=== PATIENT | female | born 1995 | race Caucasian/White ===

== ENCOUNTER 2020-07-19 07:27 | Inpatient (IN) ==
--- NOTE | 2020-07-18 09:58 | Communication Note ---
Pt tested Covid positive on 06/17/20 through her work- testing was done randomly at work. Pt was asymptomatic. Pt was retested for Covid 07/15/20= results were ne gative. OB floor has been informed and is aware- pt will be treated as negative Covid patient since positive test was >30 days ago. Anesthesiologist for day of procedure, Dr. Marrero, was also informed.
--- NOTE | 2020-07-19 07:37 | History & Physical Report ---
Date of Service July 19, 2020 Assessment & Plan Admission and Anticipated Discharge Date Admission Date: July 19, 2020 History of Present Illness Primary Care Provider: NO PCP Allergies Allergy/AdvReac Type Severity Reaction Status Date / Time No Known Allergies Allergy Verified 07/15/20 09:47 Home Medications Medication Instructions Recorded Confirmed Type aspirin [Aspir-81] 81 mg PO QDL 07/15/20 07/15/20 History famotidine [Pepcid] 40 mg PO PM 07/15/20 07/15/20 History labetalol 300 mg PO TID 07/15/20 07/15/20 History Past Med/Surg History Medical History (Updated 07/15/20 @ 09:51 by Dayanna Mccormick RN) GERD (gastroesophageal reflux disease) Hx of pre-eclampsia in prior , currently ASA for this Hypertension induced Surgical History (Updated 07/15/20 @ 09:51 by Dayanna Mccormick RN) History of tonsillectomy Hx of section [place] teeth extracted Family History (Updated 07/15/20 @ 09:52 by Dayanna Mccormick RN) Aunt Throat cancer Father No problems noted. Mother Diabetes Social History Smoking Status: Former smoker Smoking End Date: over 10 yrs ago; Second Hand Exposure: Yes ( smokes); Do You Dip or Chew Tobacco: No; Tobacco Cessation Education Requested by Patient: No Hx Alcohol Use: No Hx Substance Use: No Preferred Language: Tajik Communication Ability: Effective Shaft Sinker Required: No Beliefs That Will Affect Care: None Current Living Situation: Spouse Other Information That Helps Us Care for You: No Feels Safe at Home: Yes Safety Concerns: Feels Safe At This Time Assistive Devices: Glasses Review of Systems Review of Systems: All systems reviewed & are unremarkable except as noted in HPI & below Physical Exam Constitutional: WD/WN, vitals as above comfortable Eyes: PERRL, conjunctivae normal, anicteric sclerae ENMT: external ear and nose normal, oropharynx normal Neck: trachea midline, no thyromegaly Thyroid: normal thyroid Respiratory: normal respiratory effort, lungs clear to auscultation Auscultation: lungs clear to auscultation bilaterally Cardiovascular: RRR, no murmur, no edema Rate/Rhythm: regular rate and regular rhythm Chest (Breasts): normal inspection/palpation of breasts Gastrointestinal (Abdomen): normal bowel sounds, soft, nontender, no hepatosplenomegaly Inspection/Auscultation: abdomen normal to inspection Skin: no rashes, warm and dry Neurologic: patellar DTR's 2+ bilat, sensation intact Psychiatric: A+Ox3, euthymic affect Genitourinary: OB Exam Abdomen: + vertex OB Exam Monitor Tracing: + external FHT monitor used, + external uterine monitor used, + category I and + normal FHT variability
[2020-07-19] MEDS ORDERED: LACTATED RINGER'S 1,000 ML IV SCH ×2 (07:45→22:00)
[2020-07-19 08:23] LABS: Basophils # (auto) 0.01 K/uL (0-0.2); Basophils % (auto) 0.1 %; Eosinophils # (auto) 0.07 K/uL (0-0.5); Eosinophils % (auto) 0.6 %; Hematocrit (blood only) 32.8 % (37-47); Hemoglobin 10.6 g/dL (12.0-16.0); Immature Granulocytes # (auto) 0.04 K/uL (0.00-0.02); Immature Granulocytes % (auto) 0.3 %; Lymphocytes # (auto) 1.58 K/uL (1.2-3.4); Lymphocytes % (auto) 13.3 %; Mean Corpuscular Hemoglobin 26.2 pg (25-34); Mean Corpuscular Hgb Conc 32.3 g/dL (32-36); Mean Corpuscular Volume 81.2 fL (80-100); Mean Platelet Volume 13.2 fL (7.4-10.4); Monocytes # (auto) 0.61 K/uL (0.11-0.59); Monocytes % (auto) 5.1 %; Neutrophils # (auto) 9.56 K/uL (1.4-6.5); Neutrophils % (auto) 80.6 %; Platelet Count 274 K/uL (130-400); RDW Coefficient of Variation 14.6 % (11.5-14.5); RDW Standard Deviation 42.7 fL (36.4-46.3); Red Blood Count 4.04 M/uL (4.2-5.4); White Blood Count 11.87 K/uL (4.8-10.8)
[2020-07-19] MEDS ORDERED: fentaNYL citrate 100 MCG/2 ML VIAL ONE (08:59)
[2020-07-19] MEDS ORDERED: MoRPHine SULFATE PF 1 MG/ML 10 ML AMP/VIAL ONE (08:59)
[2020-07-19] MEDS ORDERED: OXYTOCIN 10 UNITS/ML VIAL ONE (09:02)
[2020-07-19] MEDS ORDERED: CITRIC ACID/SODIUM CITRATE 15 ML UDC PO STA ×2 (09:21→09:26)
--- NOTE | 2020-07-19 09:22 | Anesthesiology Consultation ---
Date of Service July 19, 2020 Assessment & Plan (1) Encounter for pre-operative examination: Chart Review Chart Review: Acceptable Risk for Surgery Consults Requested none ASA ASA3 Proposed Anesthesia Anesthesia Type: Spinal Risk / Benefits Reviewed With: PT / POA / Parent / Guardian, Accepts Plan and Informed Consent Obtained History Surgery Operation Date: 07/19/20 08:50 Proposed Procedures p Section, - Wilfred Okeefe MD s Bilateral Tubal Ligation - Wilfred Okeefe MD Height/Weight Height: 5 ft 4 in Weight: 145.15 kg Allergies Allergy/AdvReac Type Severity Reaction Status Date / Time No Known Allergies Allergy Verified 07/19/20 08:38 Medications Home Medications Medication Instructions Recorded Confirmed Last Taken labetalol 300 mg PO TID 07/15/20 07/19/20 07/19/20 06:30 prenat.vits,francesca,ydj-[id number] 1 tab PO DAILY 07/19/20 07/19/20 07/19/20 06:30 [ Vitamin] NPO Date Last Intake of Fluids: 07/19/20 Time Last Intake of Fluids: 00:00 Date Last Intake of Solids: 07/19/20 Time Last Intake of Solids: 00:00 Past Medical History Medical History GERD (gastroesophageal reflux disease) Hx of pre-eclampsia in prior , currently ASA for this Hypertension induced Exercise / Class Metabolic Activity II 4-5 Yardwork/Stairs/Walk up hill Past Family History Family History Aunt Throat cancer Father No problems noted. Mother Diabetes Past Surgical History Surgical History History of tonsillectomy Hx of section [place] teeth extracted Past Anesthesia History No Hx of Anesthesia Complications and No Family Hx of Anesthesia Complications History of PONV No Hx of PONV and No Hx of Motion Sickness Social History Smoking Status: Former smoker Do You Dip or Chew Tobacco: No Smoking End Date: 2011 Hx Alcohol Use: No Hx Substance Use: No substance use type: does not use Physical Exam Vital Signs Last Vital Signs Temp 99.1 F 07/19/20 08:02 Pulse 95 H 07/19/20 07:45 Resp 20 07/19/20 08:02 BP 123/62 07/19/20 07:45 ENMT Mouth: no dentition abnormality Thyromental Distance: > or= 3.5 Finger Breadths Mallampati Class: III Neck normal visual inspection Respiratory normal respiratory effort Auscultation: lungs clear to auscultation bilaterally Cardiovascular Rate/Rhythm: regular rate and regular rhythm Testing Laboratory Results 07/19/20 07:37 Blood Type A Positive 07/19/20 07:32 Antibody Screen NEGATIVE 07/19/20 07:32
[2020-07-19] MEDS ORDERED: DC INTRASPINAL MORPHINE SCH (10:30)
[2020-07-19] MEDS ORDERED: NALOXONE HCL 0.4 MG/1 ML VIAL/CARP IV PRN (10:30)
[2020-07-19] MEDS ORDERED: KETOROLAC 30 MG/ML VIAL IV PRN (10:30)
[2020-07-19] MEDS ORDERED: MoRPHine SULFATE PF 1 MG/ML 10 ML AMP/VIAL INT SPINAL ONE (10:30)
[2020-07-19] MEDS ORDERED: MEPERIDINE HCL 25 MG/ML CARP/VIAL IV PRN (10:30)
[2020-07-19] MEDS ORDERED: NO NARCOTICS OR SEDATIVES SCH (10:30)
[2020-07-19] MEDS ORDERED: diphenhydrAMINE 50 MG/ML VIAL IV PRN ×2 (10:30→13:06)
[2020-07-19] MEDS ORDERED: ePHEDrine sulfate 50 MG/ML AMP IV PRN (10:30)
[2020-07-19] MEDS ORDERED: SODIUM CHLORIDE 0.9% 1000ML 1,000 ML IV SCH (10:30)
[2020-07-19] MEDS ORDERED: NALOXONE HCL 1 MG in SODIUM CHLORIDE 0.9% 1000ML 1,000 ML IV PRN (10:30)
[2020-07-19] MEDS ORDERED: LACTATED RINGER'S 500 ML IV PRN (10:30)
[2020-07-19] MEDS ORDERED: NALOXONE HCL 0.08 MG in SYRINGE 1.8 ML IV PRN (10:30)
[2020-07-19] MEDS ORDERED: ONDANSETRON INJ 2 MG/ML 2 ML VIAL ONE (10:31)
[2020-07-19] MEDS ORDERED: ePHEDrine sulfate 50 MG/ML SYR ONE (11:22)
[2020-07-19] MEDS ORDERED: PHENYLEPHRINE 100MCG/ML 5ML SYR ONE (11:22)
--- NOTE | 2020-07-19 12:10 | Post Operative Brief Note ---
Immediate Post Op Note v1 Date of Surgery July 19, 2020 Pre & Post Diagnosis Operation Date: 07/19/20 08:50 Pre-Op Diagnosis: Previous , Voluntary Sterilization Post-Op Diagnosis: Previous , Voluntary Sterilization; LOW TRANSVERSE SECTION AND BILATERAL TUBAL LIGATION WITH FILSHE CLIPS I identified the patient and participated in the time-out.: Yes Procedure Operation Date: 07/19/20 08:50 Actual Procedures p Section,delivery of live male at 1057 - Wilfred Okeefe MD s Bilateral Tubal Ligation - Wilfred Okeefe MD Surgeon Wilfred Okeefe MD Chief Ophthalmic Technician Dr. Sanz and ADI Ramos Estimated Blood Loss 800 Findings Consistent with Post-Op Diagnosis Drains Chavez Catheter (inserted after spinal with return of light yellow urine)
[2020-07-19] MEDS ORDERED: OXYTOCIN 20 UNITS in LACTATED RINGER'S 1,000 ML IV SCH (13:06)
[2020-07-19] MEDS ORDERED: SENNA 8.6 MG TAB PO PRN (13:06)
[2020-07-19] MEDS ORDERED: BENZOCAINE 20% AER SPR 82.5 GM CAN EXT PRN (13:06)
[2020-07-19] MEDS ORDERED: HYDROCORTISONE ACETATE 25 MG SUPP PR PRN (13:06)
[2020-07-19] MEDS ORDERED: MAGNESIUM HYDROXIDE SUSP 30 ML UDC PO PRN (13:06)
[2020-07-19] MEDS ORDERED: SUPERCREAM 0.870% 15 GM JAR EXT PRN (13:06)
[2020-07-19] MEDS ORDERED: DIPHTHERIA/TETANUS/PERTUSSIS 0.5 ML SYR/VIAL IM ONE (13:06)
--- NOTE | 2020-07-19 13:11 | Anesthesiology Progress Note ---
Date of Service July 19, 2020 Anesthesia Post Procedure Vital Signs Vital Signs: Temp Pulse Resp BP Pulse Ox 07/19/20 13:06 72 98 07/19/20 13:01 92 H 119/58 L 99 07/19/20 12:56 72 100 07/19/20 12:51 72 116/60 100 07/19/20 12:50 18 07/19/20 12:46 73 100 07/19/20 12:41 74 119/65 100 07/19/20 12:40 20 07/19/20 12:36 70 100 07/19/20 12:32 79 125/58 L 07/19/20 12:31 78 100 07/19/20 12:30 20 07/19/20 12:26 77 100 07/19/20 12:21 71 100/51 L 100 07/19/20 12:20 20 07/19/20 12:16 83 100 07/19/20 12:15 83 88 L 07/19/20 12:12 78 96/51 L 07/19/20 12:11 81 100 07/19/20 12:10 20 07/19/20 12:06 73 100 07/19/20 12:03 82 105/50 L 07/19/20 12:01 86 100 07/19/20 12:00 97.7 F 20 07/19/20 08:02 99.1 F 20 07/19/20 07:45 95 H 123/62 07/19/20 07:43 86 170/101 H Transfer of Care Handoff Completed per policy Notes Mental Status: alert / awake / arousable and participated in evaluation Nausea / Vomiting: adequately controlled Pain: adequately controlled Airway Patency, RR, SpO2: stable & adequate BP & HR: stable & adequate Hydration State: stable & adequate Neuraxial Anesthesia: was administered and sensory block is resolving Anesthetic Complications: no major complications apparent and Pt Satisfied with anesthetic care
[2020-07-19] MEDS: SIMETHICONE 80 MG CHEW PO SCH ×3 (13:36→21:12)
[2020-07-19] MEDS: metroNIDAZOLE 500 MG TAB PO SCH ×2 (14:39→21:12)
[2020-07-19] MEDS: cephALEXin 500 MG CAP PO SCH ×2 (14:39→21:12)
--- NOTE | 2020-07-19 16:17 | Obstetrical Progress Note ---
Date of Service July 19, 2020 Assessment & Plan Admission and Anticipated Discharge Date Admission Date: July 19, 2020 Physical Exam Genitourinary: Manual OB Exam: + cervical dilation 5 cm, + cervical effacement 80%, + station -1 and + amniotic fluid clear OB Exam Monitor Tracing: + external FHT monitor used, + external uterine monitor used, + category I and + normal FHT variability AROM of forebag with Amni-hook clear fluid Results & Data ([facility]) Vital Signs (Past 12 Hours) Vital Signs Temp Pulse Resp BP Pulse Ox 07/19/20 15:02 81 130/90 07/19/20 15:01 79 100 07/19/20 14:56 82 99 07/19/20 14:51 73 99 07/19/20 14:46 82 99 07/19/20 14:41 79 97 07/19/20 14:36 67 98 07/19/20 14:32 69 131/80 07/19/20 14:31 76 97 07/19/20 14:26 74 99 07/19/20 14:21 80 99 07/19/20 14:16 73 98 07/19/20 14:11 75 98 07/19/20 14:06 71 98 07/19/20 14:02 76 122/67 07/19/20 14:01 79 98 07/19/20 14:00 20 07/19/20 13:56 73 97 07/19/20 13:51 78 98 07/19/20 13:46 76 99 07/19/20 13:41 74 99 07/19/20 13:36 71 98 07/19/20 13:32 65 136/81 07/19/20 13:31 68 100 07/19/20 13:30 20 07/19/20 13:26 71 100 07/19/20 13:21 72 99 07/19/20 13:16 71 99 07/19/20 13:11 78 100 07/19/20 13:06 72 98 07/19/20 13:01 92 H 119/58 L 99 07/19/20 13:00 20 07/19/20 12:56 72 100 07/19/20 12:51 72 116/60 100 07/19/20 12:50 18 07/19/20 12:46 73 100 07/19/20 12:41 74 119/65 100 07/19/20 12:40 20 07/19/20 12:36 70 100 07/19/20 12:32 79 125/58 L 07/19/20 12:31 78 100 07/19/20 12:30 20 07/19/20 12:26 77 100 07/19/20 12:21 71 100/51 L 100 07/19/20 12:20 20 07/19/20 12:16 83 100 07/19/20 12:15 83 88 L 07/19/20 12:12 78 96/51 L 07/19/20 12:11 81 100 07/19/20 12:10 20 07/19/20 12:06 73 100 07/19/20 12:03 82 105/50 L 07/19/20 12:01 86 100 07/19/20 12:00 36.5 C 20 07/19/20 08:02 37.3 C 20 07/19/20 07:45 95 H 123/62 07/19/20 07:43 86 170/101 H
--- NOTE | 2020-07-19 19:16 | Operative Report (OR) ---
DATE OF OPERATION: 07/19/2020 PREOPERATIVE DIAGNOSES: Term elective repeat section and voluntary sterilization. POSTOPERATIVE DIAGNOSES: Term elective repeat section and voluntary sterilization. PROCEDURE: Repeat section, low segment transverse with bilateral tubal ligation with Filshie clips. SURGEON: Wilfred Okeefe MD. ASSISTANTS: ADI Ramos and Dr. Sanz. ANESTHESIA: Spinal. COMPLICATIONS: None. FINDINGS: Live male, Apgars 7, 8. weight is 8 pounds 6 ounces. ESTIMATED BLOOD LOSS: 800 mL. TOTAL URINE: 75 mL. FLUIDS: 1800 mL. CLINICAL HISTORY: The patient is a 25-year-old female, para 1-1-0-1, at 39 weeks and 2 days, admitted for an elective repeat section and voluntary sterilization procedure. Informed consent was given in the office. Risks, benefits and alternatives were explained. A timeout was called prior to the start of the procedure and antibiotics were given preop. DESCRIPTION OF PROCEDURE: Under satisfactory spinal anesthesia, the patient was prepped and draped in the usual sterile fashion. A low Pfannenstiel incision was made entering into the abdominal cavity and successive layers without difficulty. Upon entering into the abdominal cavity, there were some adhesions noted to the lower uterine segment. The incision was made a little higher up on the lower segment, widened with bandage scissors bilaterally. The amniotic sac was nicked and found to be clear. The infant was then delivered from the vertex presentation with the aid of fundal pressure. There was copious amounts of fluid the baby was floating, delivering a live male. The cord was doubly clamped and cut. Baby was handed to dye automation operator. Apgars 7 and 8, weight 8 pounds 6 ounces. Cord blood was obtained. Placenta was then delivered spontaneously and intact. Uterus was then exteriorized. Ring forceps were then placed on both angles in the inferior margin. Another ring was used to dilate the cervix. The uterus was then closed in a double layer closure with 0 Vicryl suture in a continuous interlocking fashion followed by second imbricating suture of 0 Vicryl suture. Several [id number] sutures were used for hemostasis. Tubes and ovaries bilaterally were found to be within normal limits. The Filshie clip applicator was then used to clip both tubes serially with 2 clips each. The uterus was then placed back into the normal anatomical position. The initial sponge, needle, and instrument counts were found to be correct. The contents of the pelvic and abdominal cavity were then irrigated to clear. No active bleeding was noted. The lower uterine segment was inspected. The incision was then coated with Jose powder. The fascia was then reapproximated from both ends using #1 Vicryl suture in a continuous interlocking fashion. Subcuticular layer was then closed with 3-0 plain suture. Subcuticular layer was then irrigated and bleeders were cauterized and the skin was then reapproximated with florence. Clear urine was noted from the Chavez. Estimated blood loss 800 mL. The final sponge, needle and instrument counts were found to be correct. The patient was then placed supine on the stretcher and taken to recovery room in stable condition. I attest to the content of the Intraoperative Record and any orders documented therein. Any exception s are noted below.
[2020-07-19] MEDS: DOCUSATE SODIUM 100 MG CAP PO SCH (21:12)
[2020-07-20] MEDS ORDERED: diphenhydrAMINE Capsule 25 MG CAP PO PRN (04:30)
[2020-07-20] MEDS ORDERED: PROMETHAZINE HCL 25 MG in SODIUM CHLORIDE 0.9% 50 ML IV PRN (04:30)
[2020-07-20] MEDS ORDERED: KETOROLAC 30 MG/ML VIAL IV PRN (04:30)
[2020-07-20] MEDS ORDERED: ONDANSETRON INJ 2 MG/ML 2 ML VIAL IV PRN (04:30)
[2020-07-20] MEDS: oxyCODONE/ACETAMINOPHEN 5mg/325mg TAB PO PRN ×5 (05:17→23:38)
[2020-07-20] MEDS: IBUPROFEN 600 MG TAB PO PRN ×5 (05:18→23:38)
[2020-07-20] MEDS: cephALEXin 500 MG CAP PO SCH ×3 (05:18→20:53)
[2020-07-20] MEDS: metroNIDAZOLE 500 MG TAB PO SCH ×3 (05:18→20:53)
[2020-07-20 07:15] LABS: Eosinophils # (auto) 0.06 K/uL (0-0.5); Eosinophils % (auto) 0.6 %; Hematocrit (blood only) 26.7 % (37-47); Hemoglobin 8.5 g/dL (12.0-16.0); Immature Granulocytes # (auto) 0.02 K/uL (0.00-0.02); Immature Granulocytes % (auto) 0.2 %; Lymphocytes # (auto) 1.14 K/uL (1.2-3.4); Lymphocytes % (auto) 11.8 %; Mean Corpuscular Hemoglobin 26.2 pg (25-34); Mean Corpuscular Hgb Conc 31.8 g/dL (32-36); Mean Corpuscular Volume 82.4 fL (80-100); Monocytes # (auto) 0.62 K/uL (0.11-0.59); Monocytes % (auto) 6.4 %; Neutrophils # (auto) 7.85 K/uL (1.4-6.5); Platelet Count 238 K/uL (130-400); RDW Coefficient of Variation 14.9 % (11.5-14.5); RDW Standard Deviation 44.7 fL (36.4-46.3); Red Blood Count 3.24 M/uL (4.2-5.4); White Blood Count 9.69 K/uL (4.8-10.8)
--- NOTE | 2020-07-20 07:59 | Obstetrical Progress Note ---
Date of Service July 20, 2020 Assessment & Plan Admission and Anticipated Discharge Date Admission Date: July 19, 2020 Physical Exam Physical Exam: abdomen soft and non tender incision clean vaishali dressing in place no calf tenderness bowel sounds present hypoactive vaginal bleeding scant hgb 8.5 Results & Data ([facility]) Vital Signs (Past 12 Hours) Vital Signs Temp Pulse Resp BP Pulse Ox 07/20/20 05:50 15 98 07/20/20 05:00 37.4 C 80 16 134/81 98 07/20/20 04:00 16 98 07/20/20 03:00 16 98 07/20/20 02:00 16 97 07/20/20 01:00 16 97 07/20/20 00:00 16 99 07/19/20 23:30 36.9 C 87 16 119/80 98 07/19/20 23:00 14 98 07/19/20 22:15 18 99 07/19/20 21:15 16 99 07/19/20 20:15 18 98
[2020-07-20] MEDS ORDERED: FERROUS SULFATE 325 MG TAB PO SCH (08:00)
[2020-07-20] MEDS: DOCUSATE SODIUM 100 MG CAP PO SCH ×2 (08:47→20:53)
[2020-07-20] MEDS: PRENATAL VITAMIN 1 TAB PO SCH (08:47)
[2020-07-20] MEDS: SIMETHICONE 80 MG CHEW PO SCH ×4 (08:47→20:52)
[2020-07-20] MEDS ORDERED: NON-FORMULARY MEDICATION (Prenat.Vits,Cal,Min-Iron-Folic Tablet) PO SCH (09:00)
[2020-07-20] MEDS ORDERED: bisacodyL 5 MG TABEC PO SCH (20:00)
[2020-07-21] MEDS: oxyCODONE/ACETAMINOPHEN 5mg/325mg TAB PO PRN ×3 (04:48→12:49)
[2020-07-21] MEDS: IBUPROFEN 600 MG TAB PO PRN ×3 (04:49→12:49)
[2020-07-21] MEDS: cephALEXin 500 MG CAP PO SCH ×2 (06:01→14:05)
[2020-07-21] MEDS: metroNIDAZOLE 500 MG TAB PO SCH ×2 (06:01→14:05)
[2020-07-21 07:04] LABS: Hematocrit (blood only) 23.6 % (37-47); Hemoglobin 7.5 g/dL (12.0-16.0)
[2020-07-21] MEDS ORDERED: FERROUS SULFATE 325 MG TAB PO SCH (08:00)
--- NOTE | 2020-07-21 08:17 | Obstetrical Progress Note ---
Date of Service July 21, 2020 Assessment & Plan Admission and Anticipated Discharge Date Admission Date: July 19, 2020 Subjective Patient is seen and examined. She feels well, no complaints. Desires d/c Pain is under control with oral meds. Ambulating without dizziness Voiding without difficulty Tolerating regular diet with out N&V Flatus + BM + Bleeding is minimal No fever/ chills/ CP/ SOB/ N&V/ Leg pain Bottle feeding without problems Vital Signs Temp Pulse Resp BP Pulse Ox 07/21/20 05:00 122/89 07/20/20 23:40 36.5 C 96 H 18 135/93 100 07/20/20 15:40 36.8 C 96 H 16 112/66 97 07/20/20 12:45 36.7 C 104 H 18 93/64 L 99 Lab Results 07/19/20 07/19/20 07/20/20 Range/Units 07:32 07:37 06:00 WBC 11.87 H 9.69 (4.8-10.8) K/uL RBC 4.04 L 3.24 L (4.2-5.4) M/uL Hgb 10.6 L 8.5 L (12.0-16.0) g/dL Hct 32.8 L 26.7 L (37-47) % MCV 81.2 82.4 (80-100) fL MCH 26.2 26.2 (25-34) pg MCHC 32.3 31.8 L (32-36) g/dL RDW Std Deviation 42.7 44.7 (36.4-46.3) fL RDW Coeff of Glenn 14.6 H 14.9 H (11.5-14.5) % Plt Count 274 238 (130-400) K/uL MPV 13.2 H 13.0 H (7.4-10.4) fL Immature Gran % (Auto) 0.3 0.2 % Neut % (Auto) 80.6 81.0 % Lymph % (Auto) 13.3 11.8 % Carlton % (Auto) 5.1 6.4 % Eos % (Auto) 0.6 0.6 % Baso % (Auto) 0.1 0.0 % Neut # (Auto) 9.56 H 7.85 H (1.4-6.5) K/uL Lymph # (Auto) 1.58 1.14 L (1.2-3.4) K/uL Carlton # (Auto) 0.61 H 0.62 H (0.11-0.59) K/uL Eos # (Auto) 0.07 0.06 (0-0.5) K/uL Baso # (Auto) 0.01 0.00 (0-0.2) K/uL Immature Gran # (Auto) 0.04 H 0.02 (0.00-0.02) K/uL Blood Type A Positive Antibody Screen NEGATIVE 07/21/20 Range/Units 06:19 WBC (4.8-10.8) K/uL RBC (4.2-5.4) M/uL Hgb 7.5 L (12.0-16.0) g/dL Hct 23.6 L (37-47) % MCV (80-100) fL MCH (25-34) pg MCHC (32-36) g/dL RDW Std Deviation (36.4-46.3) fL RDW Coeff of Glenn (11.5-14.5) % Plt Count (130-400) K/uL MPV (7.4-10.4) fL Immature Gran % (Auto) % Neut % (Auto) % Lymph % (Auto) % Carlton % (Auto) % Eos % (Auto) % Baso % (Auto) % Neut # (Auto) (1.4-6.5) K/uL Lymph # (Auto) (1.2-3.4) K/uL Carlton # (Auto) (0.11-0.59) K/uL Eos # (Auto) (0-0.5) K/uL Baso # (Auto) (0-0.2) K/uL Immature Gran # (Auto) (0.00-0.02) K/uL Blood Type Antibody Screen PE: General: Alert, orientedx3, NAD CVS: S1S2 RRR Lungs; CTAB Abd: soft, NT, ND, BS+, fundus firm, below Umbilicus Incision/ Dressing: Clean, dry, intact Perineum intact, Lochia rubra minimal Ext; NT, no edema AP: 25 yo s/p C Section, pod# 2 VSS Afebrile doing well Anemic, asymptomatic, will repeat at noon Iron bid, discussed how to use Continue routine postop care Encourage ambulation, PO intake All questions were answered Discussed when to call D/C home , f/u in office Results & Data ([facility]) Vital Signs (Past 12 Hours) Vital Signs Temp Pulse Resp BP Pulse Ox 07/21/20 05:00 122/89 07/20/20 23:40 36.5 C 96 H 18 135/93 100
[2020-07-21] MEDS: DOCUSATE SODIUM 100 MG CAP PO SCH (08:43)
[2020-07-21] MEDS: PRENATAL VITAMIN 1 TAB PO SCH (08:43)
[2020-07-21] MEDS: SIMETHICONE 80 MG CHEW PO SCH ×2 (08:43→12:48)
[2020-07-21] MEDS ORDERED: bisacodyL 10 MG SUPP PR PRN (12:12)
[2020-07-21 12:18] LABS: Basophils # (auto) 0.01 K/uL (0-0.2); Basophils % (auto) 0.1 %; Eosinophils # (auto) 0.09 K/uL (0-0.5); Hematocrit (blood only) 26.8 % (37-47); Hemoglobin 8.5 g/dL (12.0-16.0); Immature Granulocytes # (auto) 0.03 K/uL (0.00-0.02); Immature Granulocytes % (auto) 0.3 %; Lymphocytes # (auto) 1.46 K/uL (1.2-3.4); Lymphocytes % (auto) 15.6 %; Mean Corpuscular Hemoglobin 26.2 pg (25-34); Mean Corpuscular Hgb Conc 31.7 g/dL (32-36); Mean Corpuscular Volume 82.5 fL (80-100); Mean Platelet Volume 11.7 fL (7.4-10.4); Monocytes % (auto) 5.3 %; Neutrophils # (auto) 7.27 K/uL (1.4-6.5); Neutrophils % (auto) 77.7 %; Platelet Count 270 K/uL (130-400); RDW Coefficient of Variation 14.9 % (11.5-14.5); RDW Standard Deviation 44.3 fL (36.4-46.3); Red Blood Count 3.25 M/uL (4.2-5.4); White Blood Count 9.36 K/uL (4.8-10.8)
--- NOTE | 2020-07-26 12:20 | Discharge Summary (DS) ---
HOSPITAL COURSE: The patient was admitted on 07/19/2020 for term elective repeat section and voluntary sterilization procedure. She underwent a repeat , delivering a live male. Apgars were 7 and 8. weight was 8 pounds 6 ounces. Tubal ligation was done with Filshie clips. The hospital course was uncomplicated. The patient was discharged home on 07/21/2020 in stable condition. Home going instructions were reviewed with the patient. Regular diet on discharge. Medications include Percocet and Motrin for pain. Follow up in the office in 1 week for an incision check.
== END 2020-07-21 14:30 | disposition home or self-care (01) | DRG 785 ==
LOC: 4S1 07:27 → EDSTATUS 08:50 → 4S2 15:43
PROC: M.PPTLD (2020-07-19 08:50)